=== PATIENT | female | born 1990 | race Caucasian/White ===

== ENCOUNTER 2016-12-12 00:26 | Emergency (ER) | payer OTHER ==
[~2016-12-12] VITALS: Ht 167.6 cm; Wt 65.8 kg
[~2016-12-12 00:26] MED LIST: BCP; HYDR1TAB8 OP; RNT150T PO
--- NOTE | 2016-12-12 00:53 | ED GI ---
General Chief Complaint: Rect Problems Stated Complaint: SEVERE RECTAL & PELVIC PAIN Nursing Triage Note: PT AMBULATED TO ROOM. PT STATES SHE HAS BEEN HAVING SEVERE RECAL AND PELVIC PAIN SINCE THIS MORNING. PT STATES SHE DOESN'T HAVE ANY PAST HISTORY OR ANY RECTAL ISSUES AT THIS TIME. Sepsis Screen: No Definite Risk Source of Information: Patient, Other Exam Limitations: No Limitations History of Present Illness Time Seen By Provider: 00:42 Initial Comments Patient has ER by private conveyance with chief complaint of one day of rectal pain. She denies since mentation, trauma, sexual intercourse anally. She reports she is having to bowel movement just today to her regular without any pain but then this evening when she got up to the bathroom she started having tremendous amount of pain in her rectum. She has not had a problem with hemorrhoids in the past. She's never had a vaginal . She denies any bleeding in her stools or black tarry stools. She has no shortness of breath or chest pain. She has some mild lower pelvic pain. She's had ovarian cysts in the past. She is not feeling chills or fever. She denies nausea. Allergies and Home Medications Allergies Coded Allergies: codeine (Verified Allergy, Intermediate, ITCHING, 04/07/15) Penicillins (Verified Allergy, Mild, 02/09/09) acetaminophen (Unverified Allergy, Unknown, 04/07/15) morphine (Unverified Allergy, Unknown, 04/07/15) oxycodone HCl (Unverified Allergy, Unknown, 04/07/15) Home Medications Pramoxine HCl 15 Gm Foam, 15 GM TP DAILY for 7 Days, #1 Ref 0 Prescribed by: JESI PEÑA on 12/12/16 0110 Review of Systems Constitutional: No chills, No diaphoresis, No fever, No malaise Respiratory: Denies Cough, Denies Shortness of Air Cardiovascular: Denies Chest Pain, Denies Lightheadedness Gastrointestinal: See HPI, Denies Abdominal Pain, Denies Constipated, Denies Diarrhea, Denies Nausea Genitourinary: Denies Burning, Denies Discharge Musculoskeletal: No back pain, No joint pain Skin: No pruritus, No rash Psychiatric/Neurological: Denies Headache, Denies Numbness Past Zqxefuf-Xwtprh-Rquylw Hx Patient Social History Alcohol Use: Denies Use Recreational Drug Use: No Smoking Status: Never a Smoker 2nd Hand Smoke Exposure: Yes Recent Foreign Travel: No Contact w/Someone Who Travel: No Recent Infectious Disease Expo: No Recent Hopitalizations: No Immunizations Up To Date Date of Influenza Vaccine: Mar 11, 2015 Seasonal Allergies Seasonal Allergies: No Surgeries HX Surgeries: Yes (DENTAL) Surgeries: Eye Surgery, Orthopedic Respiratory Hx Respiratory Disorders: No Cardiovascular Hx Cardiac Disorders: No Neurological Hx Neurological Disorders: Yes Neurological Disorders: Headaches /Migraines Genitourinary Hx Genitourinary Disorders: No Gastrointestinal Hx Gastrointestinal Disorders: Yes Gastrointestinal Disorders: Gastroesophageal Reflux Musculoskeletal Hx Musculoskeletal Disorders: No Endocrine Hx Endocrine Disorders: No HEENT HX ENT Disorders: No Cancer Hx Cancer: No Psychosocial Hx Psychiatric Problems: No Physical Exam Vital Signs VS - Last 72 Hours, by Label 12/12/16 00:26 Temp 97.6 Pulse 69 Resp 20 B/P (MAP) 138/95 Pulse Ox 97 O2 Delivery Room Air Capillary Refill : Less Than 3 Seconds General Appearance: WD/WN, no apparent distress HEENT: PERRL/EOMI, pharynx normal Neck: non-tender, supple, normal inspection Respiratory: lungs clear, normal breath sounds Cardiovascular: normal peripheral pulses, regular rate, rhythm Gastrointestinal: normal bowel sounds, soft, no organomegaly, tenderness (mild right lower quadrant and suprapubic tenderness; without rebound or mesenteric signs.) Rectal: normal rectal tone, No black stool, No blood streaked stool, No hemorrhoids, No mass, No tenderness, other (small erythematous fissure at 12:00) Extremities: no calf tenderness, normal capillary refill Back: normal inspection, no CVA tenderness Neurologic/Psychiatric: alert, oriented x 3 Skin: normal color, warm/dry Progress/Results/Core Measures Results/Orders Lab Results Laboratory Tests Test 12/12/16 00:29 Range/Units Urine Color STRAW Urine Clarity CLEAR Urine pH 6.5 5-9 Urine Specific [place] 1.005 L 1.016-1.022 Urine Protein NEGATIVE NEGATIVE Urine Glucose (UA) NEGATIVE NEGATIVE Urine Ketones NEGATIVE NEGATIVE Urine Nitrite NEGATIVE NEGATIVE Urine Bilirubin NEGATIVE NEGATIVE Urine Urobilinogen NORMAL NORMAL MG/DL Urine Leukocyte Esterase NEGATIVE NEGATIVE Urine RBC (Auto) NEGATIVE NEGATIVE Urine RBC NONE /HPF Urine WBC RARE /HPF Urine Squamous Epithelial Cells 2-5 /HPF Urine Crystals NONE /LPF Urine Bacteria FEW H /HPF Urine Casts NONE /LPF Urine Mucus NEGATIVE /LPF Urine Culture Indicated YES My Orders Orders - JESI PEÑA Ua Culture If Indicated (12/12/16 01:03) Urine Culture (12/12/16 00:29) Vital Signs/I&O Vital Sign - Last 12Hours 12/12/16 00:26 Temp 97.6 Pulse 69 Resp 20 B/P (MAP) 138/95 Pulse Ox 97 O2 Delivery Room Air Blood Pressure Mean: 109 Point of Care Testing Urine -Bedside: Negative Progress Note : Time: 01:05 Progress Note We'll get a UA. There appears to be a small fissure that could describe her symptoms at 12:00 position. We'll recommend steroid OTC treatment for a week. If this is not working or pain is getting worse and she should try and get the nifedipine cream compounded and use that. She should also eat a high-fiber diet and follow-up with her PCP in one to 2 weeks. As far as her lower right quadrant pain and her vitals are all stable and she wishes to work this up outpatient with her primary care physician as opposed to a lengthy expensive ER workup. She states she has to be at work in a couple hours. Departure Impression Impression: Primary Impression: Acute anal fissure Additional Impression: Abdominal discomfort Disposition: 01 HOME, SELF-CARE Condition: Stable Departure-Patient Inst. Referrals: ANN PACE MD (PCP/Family) Primary Care Physician Patient Instructions: Anal Fissure (DC) Add. Discharge Instructions: Your rectal pain is probably due to the anal fissure found the 12:00 position which will be best treated with hydrocortisone cream from [facility] or the Proctofoam prescription that was sent to [facility]; apply a pea sized amount rectally daily for the next week. If you're not getting improvement or you're pain becomes worse then you can tow picker the nifedipine gel made by a compounding pharmacy and apply it up to 3 times a day as needed to control your pain and spasm. You should also increase your fiber in your diet and use sitz baths as often as necessary to control your symptoms. If you're not getting good relief the next week or two then you should follow up with your primary care physician. Concerning your right lower quadrant tenderness, you should follow up with your primary care physician for further workup and management. If this becomes worse or is accompanied by new symptoms such as fevers, nausea, or other worrisome symptoms please come back to the ER. All discharge instructions reviewed with patient and/or family. Voiced understanding. Scripts Pramoxine HCl (Proctofoam) 15 Gm Foam 15 GM TP DAILY for 7 Days, #1 GM 0 Refills Prov: JESI PEÑA 12/12/16 Copy Copies To 1: ANN PACE MD, TITUS J Dec 12, 2016 00:53
[2016-12-12 01:09] LABS: BILIRUBIN,URINE NEGATIVE (NEGATIVE); KETONES,URINE NEGATIVE (NEGATIVE); LEUKOCYTE ESTERASE ,URINE NEGATIVE (NEGATIVE); NITRITE,URINE NEGATIVE (NEGATIVE); PH,URINE 6.5 (5-9); PROTEIN,URINE NEGATIVE (NEGATIVE); UROBILINOGEN,URINE NORMAL (NORMAL)
[2016-12-12] MEDS ORDERED: PRAM15FO3 TP (01:10)
[2016-12-12 01:16] LABS: WBC,URINE RARE /HPF
[2016-12-12 01:19] VITALS: BP 138/95
== END 2016-12-12 01:19 | disposition home or self-care (01) ==
LOC: EDUNIT# 00:26 → ER 00:28
DX: K60.0 Acute anal fissure (principal); R19.8 Other specified symptoms and signs involving the digestive system and abdomen; K21.9 Gastro-esophageal reflux disease without esophagitis; G43.909 Migraine, unspecified, not intractable, without status migrainosus; Z77.22 Contact with and (suspected) exposure to environmental tobacco smoke (acute) (chronic)
CPT/HCPCS: 81000; 84703; 87088; 99282

== ENCOUNTER → 2017-05-18 | Outpatient (REF) ==
[~2017-05-18] MED LIST changes: +PRAM15FO3 TP
--- NOTE | 2017-05-18 13:10 | Diagnostic Imaging Report ---
INDICATION: Injury with pain laterally. FINDINGS: No widening of the mortise. The plafond and talar dome are intact. The base of the fifth metatarsal is intact. No focal swelling evident. No fracture demonstrated. IMPRESSION: Unremarkable ankle radiographs. Dictated by: Dictated on workstation # [id number]
--- NOTE | 2017-05-18 13:28 | Diagnostic Imaging Report ---
INDICATION: Right foot pain. AP, oblique, and lateral views of the right foot are obtained. No fracture or acute bony abnormality is seen. There is no dislocation. IMPRESSION: Negative right foot. Dictated by: Dictated on workstation # [id number]
== END | disposition home or self-care (01) ==
LOC: OCC 12:35
PROVIDERS: ATTEND Nurse Practitioner Family
CPT/HCPCS: 73610; 73630

== ENCOUNTER → 2017-07-23 | Outpatient (CLI) | payer OTHER ==
--- NOTE | 2017-07-23 16:10 | Diagnostic Imaging Report ---
CLINICAL INDICATION: Patient with migraines, double vision, nausea x2 weeks. No history of trauma. EXAM: Axial CT scan of the brain performed without IV contrast. COMPARISON: None. FINDINGS: There is no evidence of acute cerebral infarct, intracranial hemorrhage, or gross mass effect. The brain parenchymal volume appears appropriate for patient's age. There is normal stockton-white matter distinction. There is no significant midline shift or herniation. There is no evidence of hydrocephalus. The basal cisterns are unremarkable. The skull, extracranial soft tissue, and orbits are unremarkable. The paranasal sinuses are unremarkable. Temporal bones show no significant abnormality. IMPRESSION: Unremarkable CT scan of the brain. Dictated by: Dictated on workstation # [id number]
== END ==
LOC: RAD 15:18
PROVIDERS: ATTEND Family Medicine
DX: G43.909 Migraine, unspecified, not intractable, without status migrainosus (principal)
CPT/HCPCS: 70450

== ENCOUNTER 2018-06-28 20:41 | Emergency (ER) | payer OTHER ==
[~2018-06-28] VITALS: Ht 167.6 cm; Wt 74.8 kg
[2018-06-28] MEDS ORDERED: NS IV 1000 ML 1,000 ML IV ONE (21:17)
[2018-06-28] MEDS ORDERED: KETOROLAC 30 MG/ML VIAL IVP ONE (21:30)
[2018-06-28] MEDS ORDERED: ONDANSETRON 4 MG/2 ML (SDV) Z0FRAN IVP ONE (21:30)
[2018-06-28] MEDS ORDERED: PROMETHAZINE INJ 25 MG/ML (PHENERGAN) AMP IVP ONE (22:15)
--- NOTE | 2018-06-28 22:34 | ED Headache ---
General Chief Complaint: Head/Cervical Problems Stated Complaint: MIGRAINE, NAUSEA, SHAKY, WEAK, BLURRED VISION Nursing Triage Note: pt reports around 1400 today she started having a BILLINGS mainly on the l side while at work. reports it has progressively gotten worse throughout the day. pt also reports nausea, and shakiness. pt reports diminished vision in the l eye. Nursing Sepsis Screen: No Definite Risk Source: patient Exam Limitations: no limitations History of Present Illness Date Seen by Provider: Jun 28, 2018 Time Seen by Provider: 21:08 Initial Comments This 27-year-old woman presents to the emergency room with complaints of left- sided frontal throbbing headache since around 14:00. She has nausea without vomiting. She has an aura of a blurry ring in her left vision. She has a history of migraines but has not had a migraine in a few years since she had surgery for strabismus repair. She does be recent pelvis. She has not taken any medications at home since historically oral medications have not been very helpful. She denies as she has the Mirena IUD. She had a neck strain while working out at the gym about a week ago and had significant neck pain until yesterday when it resolved. Allergies and Home Medications Allergies Coded Allergies: codeine (Verified Allergy, Intermediate, ITCHING, 04/07/15) Penicillins (Verified Allergy, Mild, 02/09/09) acetaminophen (Unverified Allergy, Unknown, 04/07/15) morphine (Unverified Allergy, Unknown, 04/07/15) oxycodone HCl (Unverified Allergy, Unknown, 04/07/15) Home Medications No Active Prescriptions or Reported Meds Patient Home Medication List Home Medication List Reviewed: Yes Review of Systems Review of Systems Constitutional: no symptoms reported Eyes: See HPI Ears, Nose, Mouth, Throat: no symptoms reported Respiratory: no symptoms reported Cardiovascular: no symptoms reported Gastrointestinal: see HPI Genitourinary: no symptoms reported : No Musculoskeletal: no symptoms reported Skin: no symptoms reported Psychiatric/Neurological: See HPI Past Ycqnzkw-Itvukk-Xhuola Hx Past Med/Social Hx: Reviewed and Corrections made Patient Social History Alcohol Use: Rarely Uses Recreational Drug Use: No Smoking Status: Never a Smoker 2nd Hand Smoke Exposure: Yes Recent Foreign Travel: No Contact w/Someone Who Travel: No Recent Infectious Disease Expo: No Recent Hopitalizations: No Physical Abuse: No Sexual Abuse: No Mistreated: No Fear: No Immunizations Up To Date Date of Influenza Vaccine: Mar 11, 2015 Seasonal Allergies Seasonal Allergies: No Past Medical History Surgeries: Yes (wisdom teeth) Eye Surgery (strabismus correction), Orthopedic (anterior cruciate ligament repair) Respiratory: No Cardiac: No Neurological: Yes Headaches /Migraines CARDIOLOGY RN History: IUD Genitourinary: No Gastrointestinal: Yes Gastroesophageal Reflux Musculoskeletal: No Endocrine: No HEENT: No Cancer: No Psychosocial: No Integumentary: No Blood Disorders: No Physical Exam Vital Signs Vital Signs - First Documented 06/28/18 21:01 Temp 97.3 Pulse 75 Resp 20 B/P (MAP) 129/82 (98) Pulse Ox 98 Capillary Refill : Less Than 3 Seconds Height, Weight, BMI Height: 5'6.00" Weight: 165lbs. oz. [id number]; 23.40 BMI Method:Stated General Appearance: WD/WN, no apparent distress HEENT: PERRL/EOMI, normal ENT inspection, TMs normal, pharynx normal Neck: normal inspection Cardiovascular: regular rate, rhythm, no edema, no murmur Respiratory: lungs clear, normal breath sounds, no respiratory distress, no accessory muscle use Gastrointestinal: normal bowel sounds, soft Extremities: normal inspection, no pedal edema Psychiatric: alert, oriented x 3 Crainal Nerves: normal hearing, normal speech, PERRL Motor/Sensory: no motor deficit, no sensory deficit Skin: normal color, warm/dry Progress/Results/Core Measures Results/Orders My Orders Orders - FELICITAS MANDEL MD Ketorolac Injection (Toradol Injection) (06/28/18 21:30) Ondansetron Injection (Zofran Injectio (06/28/18 21:30) Saline Lock/Iv-Start (06/28/18 21:17) Ns Iv 1000 Ml (Sodium Chloride 0.9%) (06/28/18 21:17) Promethazine Injection (Phenergan Injec (06/28/18 22:15) Medications Given in ED Current Medications Medications Dose Ordered Sig/Shari Route Start Time Stop Time Status Last Admin Dose Admin Ketorolac Tromethamine 30 mg ONCE ONCE IVP 06/28/18 21:30 06/28/18 21:31 DC 06/28/18 21:26 30 MG Ondansetron HCl 8 mg ONCE ONCE IVP 06/28/18 21:30 06/28/18 21:31 DC 06/28/18 21:26 8 MG Promethazine HCl 25 mg ONCE ONCE IVP 06/28/18 22:15 06/28/18 22:16 DC 06/28/18 22:07 25 MG Sodium Chloride 1,000 ml @ 0 mls/hr Q0M ONCE IV 06/28/18 21:17 06/28/18 21:19 DC 06/28/18 21:26 0 MLS/HR Vital Signs/I&O 06/28/18 21:01 Temp 97.3 Pulse 75 Resp 20 B/P (MAP) 129/82 (98) Pulse Ox 98 Blood Pressure Mean: 98 Progress Progress Note #1: Time: 22:33 Progress Note Patient was treated with Toradol and Zofran as well as IV fluids. Initially she did not want anything sedating as she is on-call for work. However, the nausea did not resolve with Zofran. She then requested Phenergan. Headache was improving with Toradol. Progress Note #2: Time: 22:48 Progress Note Symptoms are now completely resolved. Departure Impression Primary Impression: Migraine Qualified Codes: G43.109 - Migraine with aura, not intractable, without status migrainosus Disposition: 01 HOME, SELF-CARE Condition: Improved Departure-Patient Inst. Decision time for Depature: 22:49 Referrals: ANN PACE MD (PCP/Family) Primary Care Physician Patient Instructions: Migraine Headache (DC) Add. Discharge Instructions: Return home and rest in a quiet, calm, dark place for the remainder of the night. Stay well-hydrated. If pain returns or may take Tylenol and/or ibuprofen. You may use your Zofran for nausea. Return to care if you have worsening symptoms that are now well managed by these medications. All discharge instructions reviewed with patient and/or family. Voiced understanding. Scripts No Active Prescriptions or Reported Meds FELICITAS MANDEL MD Jun 28, 2018 22:34
[2018-06-28 22:50] VITALS: BP 122/74
== END 2018-06-28 22:50 | disposition home or self-care (01) ==
LOC: EDUNIT# 20:41 → ER 20:42
DX: G43.909 Migraine, unspecified, not intractable, without status migrainosus (principal); K21.9 Gastro-esophageal reflux disease without esophagitis; Z88.5 Allergy status to narcotic agent; Z86.69 Personal history of other diseases of the nervous system and sense organs; Z88.0 Allergy status to penicillin; Z88.6 Allergy status to analgesic agent; Z97.5 Presence of (intrauterine) contraceptive device; Z77.22 Contact with and (suspected) exposure to environmental tobacco smoke (acute) (chronic); Z98.890 Other specified postprocedural states
CPT/HCPCS: 96361; 96374; 96375

== ENCOUNTER → 2018-07-27 | Outpatient (CLI) | payer OTHER ==
--- NOTE | 2018-07-27 10:33 | Diagnostic Imaging Report ---
PROCEDURE: MR imaging cervical spine without contrast. TECHNIQUE: Multiplanar, multisequence MR imaging of the cervical spine was performed without contrast. INDICATION: Neck pain and left shoulder pain. FINDINGS: There is mild straightening of normal cervical lordosis. The vertebral body heights are well-maintained. Prevertebral soft tissues are within normal limits. Posterior fossa is unremarkable. Visualized portions of the spinal cord are normal in signal intensity and morphology. There are no marrow signal intensity abnormalities. There is no fracture or traumatic subluxation. C2-C3 is unremarkable. C3-C4 is unremarkable. C4-C5 is unremarkable. At C5-C6, there is a minimal annular bulging with slight effacement of ventral thecal sac. Similar findings are seen at C6-C7. C7-T1 is unremarkable. There is no focal disc extrusion or high-grade spinal stenosis. IMPRESSION: Minimal annular bulging at C5-C6 and C6-C7 otherwise unremarkable. Dictated by: Dictated on workstation # [id number]
== END ==
LOC: RAD 08:35
PROVIDERS: ATTEND Nurse Practitioner Family
DX: M54.2 Cervicalgia (principal); M25.512 Pain in left shoulder; V89.2XXA Person injured in unspecified motor-vehicle accident, traffic, initial encounter
CPT/HCPCS: 72141

== ENCOUNTER → 2018-07-29 | Outpatient (CLI) | payer OTHER ==
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
== END ==
LOC: RAD 14:36
PROVIDERS: ATTEND Nurse Practitioner Family
DX: S43.492A Other sprain of left shoulder joint, initial encounter (principal); M25.812 Other specified joint disorders, left shoulder; V89.2XXA Person injured in unspecified motor-vehicle accident, traffic, initial encounter
CPT/HCPCS: 73221

== ENCOUNTER 2018-09-28 15:06 | Outpatient (RCR) | payer OTHER | END 2018-10-06 14:16 | disposition home or self-care (01) | PROVIDERS: ATTEND Orthopaedic Surgery | DX: S43.492A Other sprain of left shoulder joint, initial encounter (principal); V89.2XXA Person injured in unspecified motor-vehicle accident, traffic, initial encounter ==

== ENCOUNTER 2019-09-27 08:12 | Outpatient (RCR) | payer OTHER | END 2019-11-02 14:12 | disposition home or self-care (01) | PROVIDERS: ATTEND Nurse Practitioner Family | DX: S43.422A Sprain of left rotator cuff capsule, initial encounter (principal); Z98.890 Other specified postprocedural states ==

== ENCOUNTER → 2020-05-10 | Outpatient (CLI) | payer OTHER | LOC: LABNPT 08:33 | PROVIDERS: ATTEND Family Medicine | DX: Z20.828 Contact with and (suspected) exposure to other viral communicable diseases (principal) | CPT/HCPCS: 87635 ==

== ENCOUNTER → 2020-05-24 | Outpatient (CLI) | payer OTHER | LOC: LAB 11:10 | PROVIDERS: ATTEND Family Medicine | DX: R52 Pain, unspecified (principal) | CPT/HCPCS: 87804 ==

== ENCOUNTER 2021-05-08 10:31 | Outpatient (RCR) | payer OTHER | END 2021-05-10 | disposition home or self-care (01) | DX: M54.2 Cervicalgia (principal) ==

== ENCOUNTER → 2021-06-10 | Outpatient (RCR) | payer OTHER | END | disposition home or self-care (01) | DX: M54.2 Cervicalgia (principal) ==

== ENCOUNTER 2021-07-04 15:14 | Outpatient (RCR) | payer OTHER | END 2021-07-08 | disposition home or self-care (01) | DX: M54.2 Cervicalgia (principal) ==

== ENCOUNTER 2021-07-19 15:22 | Outpatient (RCR) | payer OTHER | END 2021-08-08 | disposition home or self-care (01) | DX: M54.2 Cervicalgia (principal) ==

== ENCOUNTER 2022-11-23 11:40 | Emergency (ER) | payer BC, OTHER ==
[~2022-11-23] VITALS: Ht 167 cm; Wt 83.0 kg
[2022-11-23 11:49] VITALS: BP 134/87
[2022-11-23] MEDS ORDERED: PRD50T PO (12:09)
[2022-11-23] MEDS ORDERED: ACHD5005 PO (12:09)
[2022-11-23] MEDS ORDERED: CYCL10TA25 PO (12:11)
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
== END 2022-11-23 12:16 | disposition home or self-care (01) ==
LOC: EDUNIT# 11:40 → ER 11:43
DX: M54.2 Cervicalgia (principal); R20.2 Paresthesia of skin; Z88.5 Allergy status to narcotic agent; Z88.6 Allergy status to analgesic agent
CPT/HCPCS: 99281

== ENCOUNTER 2022-12-30 16:09 | Outpatient (RCR) | payer BC ==
[~2022-12-30 16:09] MED LIST changes: +ACHD5005 PO; +CYCL10TA25 PO; +PRD50T PO
== END 2023-01-08 | disposition home or self-care (01) ==
PROVIDERS: ATTEND Orthopaedic Surgery
DX: M50.123 Cervical disc disorder at C6-C7 level with radiculopathy (principal)